=== PATIENT | male | born 1960 | race Caucasian/White ===

== ENCOUNTER → 2025-01-09 08:11 | Outpatient (REF) | payer BC, SELFPAY | LOC: RAD 08:11 | PROVIDERS: ATTENDING PHYSICIAN Internal Medicine Endocrinology, Diabetes & Metabolism; FAMILY PHYSICIAN Family Medicine | DX: E21.0 Primary hyperparathyroidism (principal); M81.0 Age-related osteoporosis without current pathological fracture | CPT/HCPCS: 77080 ==